=== PATIENT | male | born 1970 | race Caucasian/White ===

== ENCOUNTER 2020-10-30 16:13 | Emergency (ER) | payer OTHER ==
[~2020-10-30 16:13] MED LIST: IBUPROFEN600 MG PO
[2020-10-30] MEDS ORDERED: CEPHALEXIN500 MG PO (18:25)
[2020-10-30] MEDS ORDERED: BACTROBAN OINT22 GM EXT (18:25)
== END 2020-10-30 18:31 | disposition home or self-care (01) ==
LOC: ER1 16:13
DX: S56.428A Laceration of extensor muscle, fascia and tendon of left little finger at forearm level, initial encounter (principal); F17.200 Nicotine dependence, unspecified, uncomplicated; W26.8XXA Contact with other sharp object(s), not elsewhere classified, initial encounter; Y92.89 Other specified places as the place of occurrence of the external cause; Y99.0 Civilian activity done for income or pay; Z23 Encounter for immunization
CPT/HCPCS: 12001; 73140; 90471; 90715; 99283